=== PATIENT | female | born 2000 | race Caucasian/White ===

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

== ENCOUNTER 2022-01-03 16:25 | Emergency (ER) | payer BC, MEDICAID ==
[~2022-01-03 16:25] MED LIST changes: +PANT-47 PO
== END 2022-01-03 17:20 | disposition left against medical advice (07) ==
LOC: ER 16:26
DX: R10.9 Unspecified abdominal pain (principal); Z53.21 Procedure and treatment not carried out due to patient leaving prior to being seen by health care provider

== ENCOUNTER 2022-01-04 07:57 | Emergency (ER) | payer BC, MEDICAID ==
[~2022-01-04] VITALS: Ht 157.5 cm; Wt 45.5 kg
[2022-01-04] MEDS ORDERED: normal saline 1000ML IV soln IVB ONE (08:35)
[2022-01-04] MEDS ORDERED: ondansetron/PF 4mg/2ml inj IV ONE (08:35)
[2022-01-04 09:05] LABS: CLARITY,URINE CLEAR (Clear); COLOR,URINE YELLOW (Yellow); GLUCOSE, URINE NEGATIVE (Neg); KETONES,URINE NEGATIVE (Neg); LEUKOCYTE ESTERASE ,URINE SMALL (Neg); NITRITES, URINE NEGATIVE (Neg); OCCULT BLOOD,URINE SMALL (Neg); PROTEIN,URINE 30 mg/dl (Neg); URINE HCG NEGATIVE (NEG); UROBILINOGEN,URINE 0.2 E.U/dL (0.2-1.0)
[2022-01-04 09:07] LABS: BASOPHILS % (AUTO) 0.3 % (0-1); EOSINOPHILS # (AUTO) 0.1 X10'3 (0-0.9); HEMATOCRIT 49.3 % (35.0-45.0); HEMOGLOBIN 16.9 g/dl (12.0-16.0); LYMPHOCYTES # (AUTO) 1.8 X10'3 (1.1-4.8); LYMPHOCYTES % (AUTO) 14.1 % (21-51); MEAN CORPUSCULAR HEMOGLOBIN 29.2 PG (27.0-31.0); MEAN CORPUSCULAR HGB CONC 34.2 g/dL (33.0-36.5); MEAN CORPUSCULAR VOLUME 85.4 FL (78-98); MEAN PLATELET VOLUME 8.6 FL (7.4-10.4); MONOCYTES # (AUTO) 1.9 X10'3 (0-0.9); MONOCYTES % (AUTO) 15.4 % (2-12); NEUTROPHILS # (AUTO) 8.6 X10'3 (1.8-7.7); NEUTROPHILS % (AUTO) 69.2 % (42-75); PLATELET COUNT 358 X10'3 (140-440); RED BLOOD COUNT 5.78 X10'6 (4.20-5.60); RED CELL DISTRIBUTION WIDTH 13.6 % (11.5-14.5); WHITE BLOOD COUNT 12.5 X10'3 (4.5-11.0)
[2022-01-04 09:09] LABS: UA COLLECTION TYPE CLN CATCH MIDSTREAM
[2022-01-04 09:12] LABS: SQUAMOUS EPITHELIAL CELL,UR MANY /LPF (FEW)
[2022-01-04 09:14] LABS: WBC,URINE 20-30 /HPF (0-4)
[2022-01-04 09:15] LABS: BACTERIA,URINE 2+ /HPF (Neg)
[2022-01-04 09:17] LABS: ALANINE AMINOTRANSFERASE 19 U/L (12-78); ALBUMIN 4.8 G/DL (3.4-5.0); ALBUMIN/GLOBULIN RATIO 1.2 (1.1-1.5); ALKALINE PHOSPHATASE 62 IU/L (20-180); ANION GAP 13 (8-16); ASPARTATE AMINO TRANSFERASE 18 U/L (10-37); BILIRUBIN,TOTAL 0.8 MG/DL (0.1-1.0); BLOOD UREA NITROGEN 11 MG/DL (7-18); BUN/CREATININE RATIO 9.9 (6.6-38.0); CALCIUM 9.5 MG/DL (8.5-10.1); CHLORIDE 86 MMOL/L (99-107); CREATININE 1.11 MG/DL (0.40-0.90); GLUCOSE 137 MG/DL (70-104); SODIUM 133 MMOL/L (135-145); TOTAL CARBON DIOXIDE 33.8 MMOL/L (24-32); TOTAL PROTEIN 8.9 G/DL (6.4-8.2); eGFR 63 ML/MIN
[2022-01-04 09:17] LABS: URINE AMPHETAMINE SCREEN NEGATIVE (Neg); URINE BARBITUATE SCREEN NEGATIVE (Neg); URINE BENZODIAZEPINES SCREEN NEGATIVE (Neg); URINE CANNABINOID SCREEN POSITIVE (Neg); URINE COCAINE SCREEN NEGATIVE (Neg); URINE METHADONE SCREEN NEGATIVE (Neg); URINE OPIATE SCREEN NEGATIVE (Neg); URINE PHENCYCLIDINE SCREEN NEGATIVE (Neg)
[2022-01-04 09:23] LABS: POTASSIUM 2.6 MMOL/L (3.5-5.1)
[2022-01-04] MEDS ORDERED: POTASSIUM BICARB 20meq eff tab 20 MEQ TABLET.EFF PO ONE (10:05)
[2022-01-04] MEDS ORDERED: LIDOcaine Viscous 15ml cup MM ONE (10:40)
[2022-01-04] MEDS ORDERED: metoclopramide 5 mg/ml inj IV ONE (10:40)
[2022-01-04] MEDS ORDERED: diphenhydrAMINE 50 mg/ml inj IV ONE (10:40)
[2022-01-04] MEDS ORDERED: mag hydrox/Alum hydrox/simeth 30ml oral suspension PO ONE (10:40)
[2022-01-04] MEDS ORDERED: sucralfate 1 gm tablet PO ONE (10:40)
[2022-01-04 12:11] VITALS: BP 111/76
== END 2022-01-04 12:14 | disposition home or self-care (01) ==
LOC: ER 07:58
DX: R11.15 Cyclical vomiting syndrome unrelated to migraine (principal); E86.0 Dehydration; F12.10 Cannabis abuse, uncomplicated; K21.9 Gastro-esophageal reflux disease without esophagitis; Z91.018 Allergy to other foods; Z79.899 Other long term (current) drug therapy
CPT/HCPCS: 80053; 80305; 81001; 81025; 85025; 96361; 96374; 96375; 99284; J1200; J2405; J2765; J7030

== ENCOUNTER 2022-04-29 15:35 | Emergency (ER) | payer BC, MEDICAID ==
[~2022-04-29] VITALS: Ht 157.5 cm; Wt 46.4 kg
[~2022-04-29 15:35] MED LIST changes: +IBUP-1986 PO; -METO-292 PO; -ONDA4TAB12 PO; -PANT-47 PO
[2022-04-29 15:39] VITALS: BP 105/68
== END 2022-04-29 16:59 | disposition home or self-care (01) ==
LOC: ER 15:36
DX: T85.698A Other mechanical complication of other specified internal prosthetic devices, implants and grafts, initial encounter (principal); F12.10 Cannabis abuse, uncomplicated; F17.200 Nicotine dependence, unspecified, uncomplicated; Z88.8 Allergy status to other drugs, medicaments and biological substances; Z79.1 Long term (current) use of non-steroidal anti-inflammatories (NSAID)
CPT/HCPCS: 71045; 99283